=== PATIENT | male | born 1980 | race Hispanic/Latino ===

== ENCOUNTER 2020-12-11 03:32 | Emergency (ER) | payer OTHER | END 2020-12-11 05:40 | disposition home or self-care (01) | LOC: ED 03:32 | DX: F29 Unspecified psychosis not due to a substance or known physiological condition (principal); F17.200 Nicotine dependence, unspecified, uncomplicated | CPT/HCPCS: 36415; 80053; 80176; 81001; 84443; 85025; 99284 ==

== ENCOUNTER 2020-12-13 04:03 | Emergency (ER) | payer OTHER ==
[~2020-12-13] VITALS: Ht 167.6 cm; Wt 81.7 kg
--- OUTSIDE RECORDS SUMMARY | 2020-12-13 04:06 | XMS ---
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 Bee has no Care Guidelines for this patient. [facility] MO.) [facility] NOTE: Visits indicate total known visits. ED/C VISIT TRACKING (12 MO.) [facility] COMPLAINT: - MEDICAL CLEARANCE 12/11/2020 17:34 [facility] [place] TYPE: Emergency COMPLAINT: - MEDICAL CLEARANCE 12/11/2020 03:35 [facility] [place] TYPE: Emergency COMPLAINT: - MULTIPLE COMPLAINTS DIAGNOSES: - Unspecified psychosis not due to a substance or known physiological condition - Nicotine dependence, unspecified, uncomplicated INPATIENT VISIT TRACKING (12 MO.) No inpatient visits to display in this time frame [email or web address]
== END 2020-12-13 05:58 | disposition home or self-care (01) ==
LOC: ED 04:03
DX: F29 Unspecified psychosis not due to a substance or known physiological condition (principal)
CPT/HCPCS: 80053; 80176; 81001; 84443; 85025; 99284

== ENCOUNTER 2021-01-02 23:25 | Emergency (ER) | payer OTHER ==
[~2021-01-02] VITALS: Ht 167.6 cm; Wt 81.7 kg
--- OUTSIDE RECORDS SUMMARY | 2021-01-02 23:34 | XMS ---
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 CRITERIA MET - [facility] - 2 Visits in 30 Days CARE PROVIDERS There are no care providers on record at this time. Bee has no Care Guidelines for this patient. E.D. VISIT COUNT (12 MO.) 4 [facility] TOTAL 4 NOTE: Visits indicate total known visits. ED/C VISIT TRACKING (12 MO.) 01/02/2021 23:26 [facility] [place] TYPE: Emergency COMPLAINT: - MEDICAL SCREENING 12/13/2020 04:03 [facility] [place] TYPE: Emergency COMPLAINT: - MEDICAL CLEARANCE DIAGNOSES: - Unspecified psychosis not due to a substance or known physiological condition 12/11/2020 17:34 [facility] [place] TYPE: Emergency COMPLAINT: - MEDICAL CLEARANCE 12/11/2020 03:35 [facility] [place] TYPE: Emergency COMPLAINT: - MULTIPLE COMPLAINTS DIAGNOSES: - Unspecified psychosis not due to a substance or known physiological condition - Nicotine dependence, unspecified, uncomplicated INPATIENT VISIT TRACKING (12 MO.) No inpatient visits to display in this time frame [email or web address]
[2021-01-02] MEDS ORDERED: ZIPRASIDONE HCL40 MG PO (23:39)
== END 2021-01-03 00:56 | disposition home or self-care (01) ==
LOC: ED 23:25
DX: S46.911A Strain of unspecified muscle, fascia and tendon at shoulder and upper arm level, right arm, initial encounter (principal); X58.XXXA Exposure to other specified factors, initial encounter; Z87.891 Personal history of nicotine dependence; Z79.899 Other long term (current) drug therapy
CPT/HCPCS: 73030; 80053; 80176; 84443; 85025; 99283-25

== ENCOUNTER 2024-06-13 18:33 | Emergency (ER) | payer OTHER ==
[~2024-06-13] VITALS: Ht 167.6 cm; Wt 90.0 kg
[~2024-06-13 18:33] MED LIST: ZIPRASIDONE HCL40 MG PO
[2024-06-13] MEDS ORDERED: HYDROXYZINE HCL25 MG PO (18:40)
[2024-06-13 19:50] LABS: BILIRUBIN, URINE POSITIVE (negative); BLOOD/HGB, URINE NEGATIVE (Negative); KETONE, URINE TRACE (Negative); LEUK ESTERASE, URINE NEGATIVE (negative); NITRITE, URINE NEGATIVE (negative)
[2024-06-13 19:57] LABS: BACTERIA, URINE NONE SEEN /hpf (negative); CASTS, URINE NONE SEEN \\lpf; COLLECTION TYPE, URINE CLEAN CATCH; CRYSTALS, URINE AMORPHOUS URATES 4+ (0-1+); EPITHELIAL CELLS, URINE NONE SEEN /lpf (0-1+); RED BLOOD CELLS, URINE 0-1 /hpf (0-5); REFLEX CULTURE, URINE No (No); WHITE BLOOD CELLS, URINE 0-1 /HPF (0-5)
[2024-06-13 20:16] LABS: AMPHETAMINES, URINE POSITIVE (NEGATIVE); BARBITURATES, URINE NEGATIVE (NEGATIVE); BENZODIAZEPINE, URINE NEGATIVE (NEGATIVE); BUPRENORPHINE, URINE NEGATIVE (NEGATIVE); CANNABINOID, URINE POSITIVE (NEGATIVE); COCAINE, URINE NEGATIVE (NEGATIVE); ECSTASY, URINE POSITIVE (NEGATIVE); FENTANYL, URINE NEGATIVE (NEGATIVE); METHADONE, URINE NEGATIVE (NEGATIVE); OPIATES, URINE NEGATIVE (NEGATIVE); OXYCODONE, URINE NEGATIVE (NEGATIVE); PHENCYCLIDINE, URINE NEGATIVE (NEGATIVE)
[2024-06-13 20:47] LABS: BASOPHILS 1.2 % (0-2); EOSINOPHILS 1.9 % (0-6); HEMOGLOBIN 14.6 g/dL (12.0-18.0); LYMPHOCYTES 28.2 % (24-44); MCH 32.6 (27-36); MCHC 34.8 g/dl (30-36); MCV 93.7 fl (81-99); MONOCYTES 7.3 % (0-12); NEUTROPHILS 61.4 % (39-80); PLATELET COUNT 369 K/uL (140-440); RBC 4.48 M/ul (4.3-5.7); RDW 13.3 (10.5-15.0)
[2024-06-13 21:15] LABS: ACETAMINOPHEN 0 ug/mL (10-30); ALBUMIN 3.8 g/dL (3.4-5.0); ALCOHOL, MEDICAL <3 ng/dL (<3); ALKALINE PHOSPHATASE 71 U/L (46-116); ALT (SGPT) 49 U/L (14-59); ANION GAP 10.4 (7-21); AST (SGOT) 33 U/L (15-37); BILIRUBIN, TOTAL 0.3 ng/dL (0.2-1.0); BUN/CREATININE RATIO 16.94 (6.0-28.6); CALCIUM 9.1 mg/dL (8.5-10.1); CARBON DIOXIDE 31 mmol/L (21-32); CHLORIDE 105 mmol/L (98-107); CREATININE, SERUM 1.18 mg/dL (0.70-1.30); GLOMERULAR FILTRATION RATE,EST 79 mL/min (>60); POTASSIUM 3.4 mmol/L (3.5-5.1); PROTEIN, TOTAL 7.6 g/dL (6.4-8.2); SALICYLATE 1.1 mg/dL (2.8-20.0); TSH, 3RD GENERATION 0.635 uIU/mL (0.358-3.740); UREA NITROGEN 20 mg/dL (7-18)
--- NOTE | 2024-06-14 14:06 | EKG ---
[facility] [address] [facility] [place] [address] Signed Normal sinus rhythm Normal ECG No previous ECGs available Confirmed by Domenic Teran MD () on 06/14/2024 2:05:54 PM Electronically Signed By: DOMENIC TERAN MD 06/14/24 1406 PATIENT NAME: DARREN GALVEZ Electrocardiogram DATE OF : 84 PHYSICIAN: DOMENIC TERAN MD REPORT #: [id number] REPORT IS CONFIDENTIAL AND NOT TO BE RELEASED WITHOUT AUTHORIZATION
[2024-06-17 15:06] VITALS: BP 116/65
== END 2024-06-17 15:06 ==
LOC: ED 18:33
PROVIDERS: Family Medicine
DX: R45.851 Suicidal ideations (principal); F15.10 Other stimulant abuse, uncomplicated; Z79.899 Other long term (current) drug therapy; Z87.891 Personal history of nicotine dependence
CPT/HCPCS: 36415; 80053; 80307; 81001; 84443; 85025; 99285; G0480; U0002